=== PATIENT | male | born 1955 | race Caucasian/White ===

== ENCOUNTER 2019-05-14 19:27 | Emergency (ER) | payer MEDICAID, SELFPAY ==
[2019-05-14 19:28] VITALS: BP 185/89; PULSE 88; RESP 16; TEMP 36.7; O2SAT 95; BMI 37.4
--- NOTE | 2019-05-14 19:53 | RAD_ITS ---
STUDY: X-RAY - LEFT SHOULDER REASON FOR EXAM: Male, 63 years old. Fall. Pain. TECHNIQUE: 4 view(s) of the shoulder. COMPARISON: None. FINDINGS: There is a curvilinear lucency across the humeral head which may be related to osteophyte or a nondisplaced fracture. Further evaluation with CT scan is recommended. Normal glenohumeral articulation. There is degenerative arthrosis of the acromioclavicular joint without inferior osseous spur formation. Normal acromion. The soft tissue structures are unremarkable. Normal visualized pulmonary apex. RAD/Shoulder min 2 Views IMPRESSION: Nondisplaced fracture across the head of the humerus is not excluded. CT scan recommended. Electronically Signed: Rocky Benitez MD at 20:11 EDT , Service support ,
--- NOTE | 2019-05-14 20:33 | ED.VISSUMM ---
- ER Visit Summary Date of Service: 05/14/19 Chief Complaint: [Fall and injury to left upper arm] History of Present Illness: The patient is a 63 M [presents to the emergency department after sustaining a fall last evening. Patient states that he stepped onto an embankment that was grassy and he slipped and fell landing on his left elbow and left arm. Patient denies striking his head or loss of consciousness. He denies any neck pain. He denies chest pain or abdominal pain. Patient has history of diabetes, hypertension, high cholesterol. He is right-hand dominant.] Physical Examination: [HEENT-PERRLA, EOMI. Cranial nerves II through XII grossly intact. TMs clear. Mucous membranes moist. No adenopathy. Cardiovascular-regular rate and rhythm without murmur or ectopy Lungs-clear to auscultation, chest wall stable without crepitus or subcu emphysema Abdomen-normoactive bowel sounds, soft, nontender, no rebound or rigidity, no peritoneal signs. Extremities-intact ?4, normal range of motion, normal pulses. Left shoulder-patient has some mild diffuse soft tissue swelling. There is some faint ecchymosis to the anterior shoulder over the upper arm. Patient has limited range of motion secondary to pain. He is neurovascular intact distally. No signs of dislocation such as sulcus sign noted.] Test Results: [X-rays of the left shoulder obtained showed a questionable fracture through the head of the humerus and CT was recommended for definitive diagnosis.] Emergency Department Course and Treatment: [I feel patient clinically has a fracture and I agree that I think there is a lucency through the head of the humerus. I do not feel obtaining a CT scan would change treatment anyway at this time. This type of injury typically is treated with sling and as well as pain medication and orthopedic follow-up. I discussed this with the patient he is in agreement.] Treatment Plan: [Follow-up with orthopedics health and wellness sales consultant. Patient given a prescription for Tiro for pain. Patient given a sling.] Disposition: [Discharged to home stable condition.] Impression: [Left proximal humerus fracture] This note was generated with [employer] dictation software. It may contain incorrect words, spelling, and punctuation that were not noted in review of the chart prior to signing ED Disposition - Plan for ED Patient: Referrals: Aleja Badillo MD [Primary Care Provider] -
--- NOTE | 2019-05-14 20:36 | ED.DEP ---
ED Disposition - Plan for ED Patient: Instructions: FRACTURE, Shoulder Prescriptions: Hydrocodone Bitart/Apap 5-325 [[place] 5MG-325MG] 1 tab PO Q4H PRN PRN 2 Days #20 tab PRN Reason: Pain Prescription Printed Referrals: Aleja Badillo MD [Primary Care Provider] - Kalen Sellers DO [STAFF PHYSICIAN] - 3-5 Days
[2019-05-14 20:39] VITALS: BP 154/95; PULSE 75; O2SAT 96
== END 2019-05-14 20:42 | disposition home or self-care (01) ==
LOC: ED 19:58
PROVIDERS: Emergency Provider Emergency Medicine; Family Provider Internal Medicine; PCP Internal Medicine
DX: S42.202A Unspecified fracture of upper end of left humerus, initial encounter for closed fracture (principal); W01.0XXA Fall on same level from slipping, tripping and stumbling without subsequent striking against object, initial encounter; E11.9 Type 2 diabetes mellitus without complications; E78.00 Pure hypercholesterolemia, unspecified; I10 Essential (primary) hypertension; Z72.0 Tobacco use
CPT/HCPCS: 73030; 99283